=== PATIENT | male | born 1980 | race African-American/Black ===

== ENCOUNTER 2017-06-11 08:44 | Emergency (ER) | payer OTHER ==
[~2017-06-11] VITALS: Ht 170.2 cm; Wt 103.2 kg
[2017-06-11 11:01] VITALS: BP 138/85
== END 2017-06-11 11:01 ==
LOC: EME 08:44
PROC: 0HQ1XZZ Repair Face Skin, External Approach (ICD-10-PCS; principal; 2017-06-11)
DX: S01.81XA Laceration without foreign body of other part of head, initial encounter (principal); W18.2XXA Fall in (into) shower or empty bathtub, initial encounter; Y93.E1 Activity, personal bathing and showering; Y92.142 Bathroom in prison as the place of occurrence of the external cause
CPT/HCPCS: 70450; 72040; 99281; 99284